=== PATIENT | female | born 2000 | race Caucasian/White ===

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

== ENCOUNTER → 2020-05-24 14:35 | Outpatient (CLI) | payer BC, SELFPAY ==
[2020-05-24 15:40] LABS: HCG Qualitative, Serum Negative (Negative)
[2020-05-24 16:26] LABS: Coronavirus 19 IgG Antibody Negative (Negative); Coronavirus 19 IgM Antibody Negative (Negative)
== END ==
PROVIDERS: Visit Provider Internal Medicine Gastroenterology
DX: Z01.812 Encounter for preprocedural laboratory examination (principal)
CPT/HCPCS: 36415; 84703; 86328

== ENCOUNTER 2020-05-26 07:55 | Day surgery (SDC) | payer BC, SELFPAY ==
[2020-05-22 15:16] VITALS: BMI 20.5
[2020-05-26] VITALS (7 sets, daily range): BP systolic 89–115; BP diastolic 44–73; PULSE 76–96; RESP 18; TEMP 36.2–36.7; O2SAT 97–100
--- NOTE | 2020-05-26 12:31 | P.PCN_ITS ---
[facility] Procedure Note Procedure Note:: Upper Endoscopy Procedure Report: Esophagogastroduodenoscopy with cold biopsies Endoscopost: Maxx Iraheta II, MD Referring Physician: Vicki LARIOS Date of Procedure: May 26, 2020 Equipment: Olympus GIF 180 standard upper endoscope Sedation: MAC sedation Indications: Ms. Blair is a 19-year-old female with moderate bloating and diarrhea. She has some indigestion and belching. She has lower abdominal discomfort. She reports some early satiety. Her recent lab work showed positive celiac serologies with a delaminated gliadin IgA 27, IgG 30 (elevated) and elevated tissue transglutaminase IgA and IgG (46 and 27 respectively) and positive anti-endomysial antibody. The patient is gluten-free. She has had symptoms for the last 2-1/2 to 3 years. She reports no heartburn, reflux or dysphagia. She reports no melena. She does note blood in the stool at times. She also has some diarrhea that alternates with obstipation/incomplete bowel evacuation. Procedure: Prior to the procedure, a history and physical exam was performed, and patient's medications and allergies were reviewed. The risks, benefits and alternatives of the sedation and procedure were discussed with the patient. All questions were answered and informed consent was obtained. The patient was brought to the procedure room. Patient identification and proposed procedure were verified by the physician and the nurse. The patient was placed in a left lateral decubitus position and the scope was passed under direct vision. Throughout the procedure, the patient's blood pressure, pulse, and oxygen saturations were monitored continuously. The upper GI endoscopy was accomplished without difficulty. The patient tolerated the procedure well. Findings: The scope was passed directly into the upper esophagus and advanced to the third portion of the duodenum. The post bulbar duodenum appeared to be relatively normal. 3 biopsies were taken from the post bulbar duodenum. There was some mucosal scalloping very minimally within the duodenal bulb and biopsies were taken additionally in the duodenal bulb to check histology (berg classification of celiac disease). The scope was withdrawn through a normal pylorus into the stomach. There was moderate bile reflux with mild linear reactive gastropathy of the antrum. The body and fundus of the stomach were normal. Cold biopsies were taken from the antrum. Upon retroflexion there was no hiatal hernia. The scope was then withdrawn into the esophagus. There was no evidence of reflux esophagitis or Ramos's. The remainder of the esophageal mucosa was normal. Impression: 1. Minimal duodenal scalloping with primarily normal appearing duodenal c onniventes?biopsies taken for celiac sprue and Berg classification 2. Bile reflux with mild linear reactive gastropathy Plan: I will follow-up the biopsies. The patient unquestionably has celiac d isease and is gluten-free. I also feel that she has functional abdominal issues/IBS which certainly may be related to reduced brush border enzymes (possible sucrase isomaltase deficiency). I would recommend C 13 sucrose breath testing. We will discuss the findings and additional treatment options.
[2020-05-26 13:35] LABS: Basophils % 0.4 % (0.1-2.0); Eosinophils # 0.1 K/mm3 (0.0-0.4); Eosinophils % 1.6 % (0.1-12.0); Hematocrit 36.1 % (37.0-47.0); Lymphocytes # 1.9 K/mm3 (0.7-4.5); Lymphocytes % 37.4 % (10-50); Mean Corpuscular Hemoglobin 33.3 pg (27.0-31.2); Mean Corpuscular Volume 92.3 fl (81-99); Mean Platelet Volume 8.5 fl (7.4-10.4); Monocytes # 0.2 K/mm3 (0.1-1.0); Neutrophils # 2.9 K/mm3 (1.8-7.8); Neutrophils % 56.5 % (37.0-80.0); Platelet Count 175 K/mm3 (142-424); Red Blood Count 3.91 M/mm3 (4.20-5.40); Red Cell Distribution Width 12.7 % (11.5-17.5); White Blood Count 5.1 K/mm3 (4.5-13.0)
[2020-05-26 13:41] LABS: Chloride 107 mmol/L (98-107); Sodium 141 mmol/L (136-145)
[2020-05-26 13:42] LABS: Potassium 3.7 mmoL/L (3.5-5.1)
[2020-05-26 13:44] LABS: Alanine Aminotransferase 20 U/L (12-78); Alkaline Phosphatase 59 U/L (38-126); Anion Gap 12.7 mEq/L (5-15); Aspartate Amino Transferase 29 U/L (14-36); Bilirubin,Total 0.6 mg/dl (0.2-1.3); Blood Urea Nitrogen 10 mg/dl (7-17); Calcium 9.6 mg/dl (8.4-10.2); Carbon Dioxide 25 mmol/L (22.0-30.0); Creatinine Clearance Estimated 118 mL/min (50-200); Estimated Glomerular Filt Rate 108 ml/min (>60); GFR (African American) 130 ML/MIN (>60); Glucose 77 mg/dl (74-100); Iron 96 ug/dL (37-170)
[2020-05-26 13:45] LABS: Albumin Level 4.3 g/dl (3.5-5.0); Albumin/Globulin Ratio 1.4 (1.1-1.8); Total Protein,Serum 7.3 g/dl (6.3-8.2)
[2020-05-26 14:18] LABS: Thyroid Stimulating Hormone 1.05 uIU/mL (0.465-4.68)
[2020-05-26 14:22] LABS: Ferritin 18.1 ng/ml (6.24-137)
[2020-05-26 15:22] LABS: Free T4 (Free Thyroxine) 1.32 ng/dl (0.78-2.19)
[2020-05-27 13:07] LABS: Folate 19.7 ng/mL (>3.0); Vitamin B12 411 pg/mL (232-1245)
[2020-05-28 07:25] LABS: Actin (Smooth Muscle) Antibody 6 Units (0-19)
[2020-06-01 11:18] LABS: 1,25 Dihydroxy Vitamin D 35 pg/mL (.); 1,25-Dihydroxy, Vitamin D-2 <10 pg/mL (.); 1,25-Dihydroxy, Vitamin D-3 35 pg/mL (.)
== END 2020-05-26 13:32 | disposition home or self-care (01) ==
PROVIDERS: PCP Family Medicine; Visit Provider Internal Medicine Gastroenterology
PROC: 0DJ08ZZ Inspection of Upper Intestinal Tract, Via Natural or Artificial Opening Endoscopic (ICD-10-PCS; CPT 43235; principal; 2020-05-26 12:00)
DX: K31.89 Other diseases of stomach and duodenum (principal); K21.9 Gastro-esophageal reflux disease without esophagitis; K31.9 Disease of stomach and duodenum, unspecified; F41.9 Anxiety disorder, unspecified; F32.9 Major depressive disorder, single episode, unspecified; Z80.9 Family history of malignant neoplasm, unspecified; Z82.49 Family history of ischemic heart disease and other diseases of the circulatory system; Z83.3 Family history of diabetes mellitus; Z96.22 Myringotomy tube(s) status; Z79.899 Other long term (current) drug therapy
CPT/HCPCS: 43239; 36415; 80053; 82607; 82652; 82728; 82746; 83540; 84439; 84443; 85025; 86255

== ENCOUNTER → 2020-07-24 15:49 | Outpatient (POV) | payer BC, SELFPAY | PROVIDERS: Visit Provider Nurse Practitioner Family | DX: Z00.00 Encounter for general adult medical examination without abnormal findings (principal) ==

== ENCOUNTER 2020-09-25 12:25 | Emergency (ER) | payer BC, SELFPAY ==
[2020-09-25 13:21] VITALS: BP 131/76; PULSE 78; RESP 19; TEMP 36.6; O2SAT 99; BMI 19.3
[2020-09-25 13:26] VITALS: BP 131/76; PULSE 78; RESP 19; TEMP 36.6; O2SAT 99
--- NOTE | 2020-09-25 13:28 | HMH.EDUTC ---
[facility] Disposition Clinical Impression: Exposure to COVID-19 virus Disposition: Home, Self-Care Condition on Discharge: Good Instructions: Preventing the Spread of Coronavirus Discharge Instructions Additional Instructions: *Monitor Temp, Over the counter Motrin or Tylenol as directed/as needed Tylenol every 4 hours and Motrin every 6 hours (as long as your family doctor has told you that you can take it) for fever or pain. and straight to ER if unable to lower temp less than 101.0 after medication given *Warm salt water gargles may help to soothe the throat *Throat Lozenges *Warm fluids like tea with honey may help to soothe the throat *Sleep elevated *Humidifier/Vaporizer Follow up IMMEDIATELY for new or worsening symptoms or no Noticeable improvement over the next 48-72 hours. 911 for difficulty breathing or swallowing You were tested for today for COVID19 your test result should be back in the next 24-48 hours, you may call to the [facility] to see if your test results are back in the next 48 hours [phone] [facility] hours are 9am-9pm You was given a handout with instructions for Self Quarantine and Self isolation for while you wait on test results and what to do if they are positive If you are positive the Health Dept will be contacting you also Referrals: Bob Garcia MD [Primary Care Provider] - As needed Forms: Work/School Release Time of Disposition: 13:29 Medical Decision Making - Christos Inquiry Pt receiving controlled substance: No Christos was queried for this patient: No Vital Signs: 09/25/20 13:21 09/25/20 13:26 Temperature 97.8 F 97.8 F Temperature Source Oral Pulse Rate 78 Pulse Rate [Left] 78 Respiratory Rate 19 19 Blood Pressure 131/76 Blood Pressure [Right Arm] 131/76 Blood Pressure Mean [Right Arm] 94 Blood Pressure Source [Right Arm] Automatic Cuff Blood Pressure Position [Right Arm] Sitting 02 Sat by Pulse Oximetry 99 Oxygen Delivery Method Room Air Orders (Tests/Meds): ORDERS Category Date Time Status Covid-19 Nasal PCR Sendout [facility] 09/25/20 13:11 Ordered [facility] HPI - General Stated complaint: covid exposure,symtoms Time Seen by Provider: 09/25/20 13:28 Mode of Arrival: Ambulatory Source of Information: Patient Limitations: No Limitations Description of Symptoms (Recalled from Triage Doc. by RN): Covid testing- symptomatic- headache, fatigue, cough HEENT Symptoms (Recalled from RN notes): No Resp Symptoms (Recalled from RN notes): No Skin Symptoms (Recalled from RN notes): No MS Symptoms (Recalled from RN notes): Yes Functional Status (Recalled from RN notes): wnl - History of Present Illness Provider Complaint: Patient states that she was recently around her boyfriends grandparents that has since tested positive for COVID States that she has been having clear drianage from her nose and headache on and off for 3 days and wanted to get tested for COVID after today she woke up having headache and body aches - Related Data Home Medications Medication Instructions Recorded Confirmed Duloxetine HCl [Cymbalta] 30 mg PO DAILY 05/22/20 09/21/20 Loratadine [Claritin] 10 mg PO DAILY 05/22/20 09/21/20 Medroxyprogesterone Acetate 150 mg IM [id number] 05/22/20 09/21/20 Melatonin 10 mg PO HS 05/26/20 09/21/20 sacrosidase 8,500 unit/mL oral PO 07/04/20 09/21/20 solution Allergies Allergy/AdvReac Type Severity Reaction Status Date / Time No Known Allergies Allergy Verified 09/21/20 10:32 - Worker's Comp Is this a Worker's Comp case?: No Is this an [facility] Worker's Comp?: No Is this a [facility] Worker's Comp?: No H History - Hepatitis A Screen Drug use history?: No High risk sexual behaviors?: No History of sexually transmitted infection?: No Currently employed?: No Childcare worker?: No Do you have indoor plumbing?: Yes Do you have electricity?: Yes Attestation statement:: This patient has been screened for Hepatitis A risk factors. I
[2020-09-27 13:16] LABS: Covid-19 Nasal PCR Sendout Lex Not Detected
== END 2020-09-25 14:05 | disposition home or self-care (01) ==
PROVIDERS: Emergency Provider Nurse Practitioner; PCP Family Medicine
DX: Z20.828 Contact with and (suspected) exposure to other viral communicable diseases (principal); R51.9 Headache, unspecified; R05 Cough; R53.83 Other fatigue
CPT/HCPCS: 99201; U0004

== ENCOUNTER → 2020-10-23 13:27 | Outpatient (CLI) | payer BC, SELFPAY ==
[2020-10-23 14:03] LABS: Alanine Aminotransferase 25 U/L (12-78); Albumin Level 4.8 g/dl (3.5-5.0); Albumin/Globulin Ratio 1.3 (1.1-1.8); Alkaline Phosphatase 56 U/L (38-126); Anion Gap 15.9 mEq/L (5-15); Aspartate Amino Transferase 31 U/L (14-36); Bilirubin,Total 0.6 mg/dl (0.2-1.3); Blood Urea Nitrogen 8 mg/dl (7-17); Calcium 10.1 mg/dl (8.4-10.2); Carbon Dioxide 21 mmol/L (22.0-30.0); Chloride 106 mmol/L (98-107); Estimated Glomerular Filt Rate 107 ml/min (>60); GFR (African American) 129 ML/MIN (>60); Globulin 3.7 g/dL (1.3-3.2); Glucose 110 mg/dl (74-100); Iron 151 ug/dL (37-170); Potassium 3.9 mmoL/L (3.5-5.1); Sodium 139 mmol/L (136-145); Total Protein,Serum 8.5 g/dl (6.3-8.2)
[2020-10-23 14:19] LABS: Basophils # 0.1 K/mm3 (0-0.2); Eosinophils # 0.1 K/mm3 (0.0-0.4); Eosinophils % 2.6 % (0.1-12.0); Hematocrit 42.2 % (37.0-47.0); Hemoglobin 14.5 g/dL (12.2-16.2); Lymphocytes # 2.1 K/mm3 (0.7-4.5); Lymphocytes % 44.9 % (10-50); Mean Corpuscular HGB Conc 34.3 g/dL (31.8-35.4); Mean Corpuscular Hemoglobin 31.2 pg (27.0-31.2); Mean Corpuscular Volume 91.1 fl (81-99); Mean Platelet Volume 8.4 fl (7.4-10.4); Monocytes # 0.3 K/mm3 (0.1-1.0); Monocytes % 5.5 % (1.7-9.3); Neutrophils # 2.2 K/mm3 (1.8-7.8); Platelet Count 221 K/mm3 (142-424); Red Blood Count 4.63 M/mm3 (4.20-5.40); Red Cell Distribution Width 13.5 % (11.5-17.5); White Blood Count 4.7 K/mm3 (4.5-13.0)
[2020-10-23 14:39] LABS: Ferritin 25.4 ng/ml (6.24-137)
[2020-10-23 14:53] LABS: Vitamin B12 359 pg/mL (239-931)
[2020-10-23 15:06] LABS: 25-OH Vitamin D, Total 44.9 ng/mL (30-100)
[2020-10-23 15:25] LABS: Total Iron Binding Capacity 358 ug/dL (265-497)
[2020-10-25 16:16] LABS: Tissue Transglutaminase IgA Ab 12 U/mL (0-3)
== END ==
PROVIDERS: Visit Provider Nurse Practitioner Family
DX: K59.00 Constipation, unspecified (principal); E74.31 Sucrase-isomaltase deficiency
CPT/HCPCS: 36415; 80053; 82306; 82607; 82728; 83516; 83540; 83550; 85025

== ENCOUNTER → 2020-10-23 14:07 | Outpatient (POV) | payer BC, SELFPAY | PROVIDERS: Visit Provider Nurse Practitioner Family | DX: Z00.00 Encounter for general adult medical examination without abnormal findings (principal) ==

== ENCOUNTER → 2021-09-22 10:48 | Outpatient (CLI) | payer BC, SELFPAY ==
[2021-09-22 12:06] LABS: Adenovirus,PCR Not Detected (NotDetected); Bordetella Pertussis Not Detected (NotDetected); Chlamydophila Pneumoniae, PCR Not Detected (NotDetected); Coronavirus 19, PCR Not Detected (NotDetected); Coronavirus 229E Not Detected (NotDetected); Coronavirus NL63 Not Detected (NotDetected); Coronavirus OC43 Not Detected (NotDetected); Coronovirus HKU1,PCR Not Detected (NotDetected); Human Metapneumovirus Not Detected (NotDetected); Influenza A, PCR Not Detected (NotDetected); Influenza AH1, 2009 Not Detected (NotDetected); Influenza AH1, PCR Not Detected (NotDetected); Influenza AH3,PCR Not Detected (NotDetected); Influenza B, PCR Not Detected (NotDetected); Mycoplasma Pneumoniae, PCR Not Detected (NotDetected); Parainfluenza 1, PCR Not Detected (NotDetected); Parainfluenza 2, PCR Not Detected (NotDetected); Parainfluenza 3, PCR Not Detected (NotDetected); Parainfluenza 4, PCR Not Detected (NotDetected); Respiratory Syncytial Virus Not Detected (NotDetected); Rhinovirus/Enterovirus Not Detected (NotDetected)
[2021-09-22 12:24] LABS: Basophils % 0.3 % (0.1-2.0); Eosinophils # 0.1 K/mm3 (0.0-0.4); Eosinophils % 1.5 % (0.1-12.0); Hematocrit 40.6 % (37.0-47.0); Hemoglobin 13.8 g/dL (12.2-16.2); Lymphocytes # 1.7 K/mm3 (0.7-4.5); Lymphocytes % 27.7 % (10-50); Mean Corpuscular HGB Conc 33.9 g/dL (31.8-35.4); Mean Corpuscular Volume 94.4 fl (81-99); Mean Platelet Volume 8.4 fl (7.4-10.4); Monocytes # 0.4 K/mm3 (0.1-1.0); Neutrophils % 64.4 % (37.0-80.0); Platelet Count 181 K/mm3 (142-424); Red Cell Distribution Width 12.5 % (11.5-17.5); White Blood Count 6.2 K/mm3 (4.8-10.8)
== END ==
PROVIDERS: PCP Family Medicine; Visit Provider Family Medicine
DX: Z20.822 Contact with and (suspected) exposure to COVID-19 (principal)
CPT/HCPCS: 36415; 85025; 87581; 87632; 87798; C9803; U0003; U0005

== ENCOUNTER → 2021-10-11 09:47 | Outpatient (CLI) | payer BC, SELFPAY ==
[2021-10-11 10:38] LABS: Coronavirus 19, PCR Not Detected (NotDetected); Influenza A, PCR Not Detected (NotDetected); Influenza B, PCR Not Detected (NotDetected)
== END ==
PROVIDERS: Visit Provider Nurse Practitioner
DX: Z20.822 Contact with and (suspected) exposure to COVID-19 (principal)
CPT/HCPCS: C9803; U0003; U0005

== ENCOUNTER → 2021-12-17 09:33 | Outpatient (CLI) | payer BC, SELFPAY ==
[2021-12-17 10:37] LABS: Basophils % 0.9 % (0.1-2.0); Eosinophils # 0.1 K/mm3 (0.0-0.4); Eosinophils % 2.4 % (0.1-12.0); Hematocrit 38.2 % (37.0-47.0); Lymphocytes # 1.6 K/mm3 (0.7-4.5); Lymphocytes % 40.7 % (10-50); Mean Corpuscular HGB Conc 33.9 g/dL (31.8-35.4); Mean Corpuscular Hemoglobin 31.4 pg (27.0-31.2); Mean Corpuscular Volume 92.6 fl (81-99); Mean Platelet Volume 8.4 fl (7.4-10.4); Monocytes # 0.2 K/mm3 (0.1-1.0); Monocytes % 5.8 % (1.7-9.3); Neutrophils % 50.1 % (37.0-80.0); Platelet Count 183 K/mm3 (142-424); Red Blood Count 4.13 M/mm3 (4.20-5.40); Red Cell Distribution Width 13.1 % (11.5-17.5)
[2021-12-17 11:02] LABS: Chloride 105 mmol/L (98-107); Potassium 3.8 mmoL/L (3.5-5.1); Sodium 137 mmol/L (136-145)
[2021-12-17 11:04] LABS: Alanine Aminotransferase 22 U/L (12-78); Alkaline Phosphatase 52 U/L (38-126); Aspartate Amino Transferase 27 U/L (14-36); Bilirubin,Total 0.6 mg/dl (0.2-1.3); Blood Urea Nitrogen 8 mg/dl (7-17); Estimated Glomerular Filt Rate 106 ml/min (>60); GFR (African American) 128 ML/MIN (>60)
[2021-12-17 11:05] LABS: Albumin Level 4.7 g/dl (3.5-5.0); Albumin/Globulin Ratio 1.8 (1.1-1.8); Anion Gap 11.8 mEq/L (5-15); Calcium 8.8 mg/dl (8.4-10.2); Carbon Dioxide 24 mmol/L (22.0-30.0); Globulin 2.6 g/dL (1.3-3.2); Glucose 77 mg/dl (74-100); Iron 107 ug/dL (37-170); Total Protein,Serum 7.3 g/dl (6.3-8.2)
[2021-12-17 11:08] LABS: Erythrocyte Sedimentation Rate 17 mm/hr (0-20)
[2021-12-17 11:11] LABS: C-Reactive Protein 0.3 mg/L (0-4)
[2021-12-17 11:14] LABS: Total Iron Binding Capacity 334 ug/dL (265-497)
[2021-12-17 11:26] LABS: 25-OH Vitamin D, Total 54.5 ng/mL (30-100)
[2021-12-17 11:40] LABS: Ferritin 36.6 ng/ml (6.24-137)
[2021-12-17 14:26] LABS: Vitamin B12 335 pg/mL (239-931)
[2021-12-18 15:14] LABS: Tissue Transglutaminase IgA Ab 6 U/mL (0-3)
== END ==
PROVIDERS: Visit Provider Nurse Practitioner Family
DX: K90.0 Celiac disease (principal); E74.31 Sucrase-isomaltase deficiency
CPT/HCPCS: 36415; 80053; 82306; 82607; 82728; 83516; 83540; 83550; 85025; 85651; 86140

== ENCOUNTER → 2022-12-17 15:30 | Outpatient (CLI) | payer BC, SELFPAY ==
[2022-12-17 16:46] LABS: Basophils # 0.1 K/mm3 (0-0.2); Basophils % 1.1 % (0.1-2.0); Eosinophils # 0.1 K/mm3 (0.0-0.4); Eosinophils % 1.3 % (0.1-12.0); Hematocrit 39.2 % (37.0-47.0); Hemoglobin 12.8 g/dL (12.2-16.2); Lymphocytes # 2.4 K/mm3 (0.7-4.5); Lymphocytes % 35.4 % (10-50); Mean Corpuscular HGB Conc 32.7 g/dL (31.8-35.4); Mean Corpuscular Hemoglobin 31.1 pg (27.0-31.2); Mean Corpuscular Volume 95.1 fl (81-99); Mean Platelet Volume 8.8 fl (7.4-10.4); Monocytes # 0.3 K/mm3 (0.1-1.0); Neutrophils # 3.9 K/mm3 (1.8-7.8); Neutrophils % 58.1 % (37.0-80.0); Platelet Count 278 K/mm3 (142-424); Red Blood Count 4.12 M/mm3 (4.20-5.40); Red Cell Distribution Width 13.5 % (11.5-17.5); White Blood Count 6.7 K/mm3 (4.8-10.8)
[2022-12-17 16:58] LABS: Alanine Aminotransferase 22 U/L (12-78); Albumin Level 4.5 g/dl (3.5-5.0); Albumin/Globulin Ratio 1.6 (1.1-1.8); Alkaline Phosphatase 49 U/L (38-126); Anion Gap 6.3 mEq/L (5-15); Aspartate Amino Transferase 27 U/L (14-36); Bilirubin,Total 0.4 mg/dl (0.2-1.3); Blood Urea Nitrogen 11 mg/dl (7-17); Calcium 9.6 mg/dl (8.4-10.2); Carbon Dioxide 27 mmol/L (22.0-30.0); Chloride 108 mmol/L (98-107); Estimated Glomerular Filt Rate 105 ml/min (>60); GFR (African American) 127 ML/MIN (>60); Globulin 2.9 g/dL (1.3-3.2); Glucose 92 mg/dl (74-100); Iron 126 ug/dL (37-170); Potassium 4.3 mmoL/L (3.5-5.1); Sodium 137 mmol/L (136-145); Total Protein,Serum 7.4 g/dl (6.3-8.2)
[2022-12-17 17:08] LABS: Total Iron Binding Capacity 458 ug/dL (265-497)
[2022-12-17 17:17] LABS: 25-OH Vitamin D, Total 54.3 ng/mL (30-100)
[2022-12-17 17:35] LABS: Ferritin 14.8 ng/ml (6.24-137)
[2022-12-17 17:48] LABS: Vitamin B12 342 pg/mL (239-931)
[2022-12-19 16:13] LABS: Tissue Transglutaminase IgA Ab 4 U/mL (0-3)
== END ==
PROVIDERS: PCP Family Medicine; Visit Provider Nurse Practitioner Family
DX: K90.0 Celiac disease (principal); E74.31 Sucrase-isomaltase deficiency
CPT/HCPCS: 36415; 80053; 82306; 82607; 82728; 83516; 83540; 83550; 85025

== ENCOUNTER → 2023-09-29 15:22 | Outpatient (CLI) | payer BC, SELFPAY ==
--- NOTE | 2023-09-29 15:27 | XR_ITS ---
FINAL REPORT CLINICAL HISTORY: PERIUMBILICAL ABD PAIN FINDINGS: Flat and upright views of the abdomen were obtained. No prior exam is available for comparison. There is a nonspecific, nonobstructive bowel gas pattern. High density in the colon could be due to ingested material. There is a moderate amount of stool throughout the colon consistent with constipation. No abnormal calcifications are identified. IMPRESSION: Constipation without evidence of obstruction. Reviewed, Interpreted and Dictated by Rafael Soto MD Transcribed by Itzel Hampton Authenticated and [facility]
== END ==
PROVIDERS: PCP Family Medicine; Visit Provider Family Medicine
DX: R10.33 Periumbilical pain (principal)
CPT/HCPCS: 74019

== ENCOUNTER 2023-12-25 13:15 | Outpatient (CLI) | payer BC, SELFPAY ==
[2023-12-25 13:33] LABS: Basophils # 0.1 K/mm3 (0-0.2); Basophils % 1.6 % (0.1-2.0); Eosinophils # 0.2 K/mm3 (0.0-0.4); Eosinophils % 4.3 % (0.1-12.0); Hematocrit 39.8 % (37.0-47.0); Hemoglobin 12.5 g/dL (12.2-16.2); Lymphocytes # 1.8 K/mm3 (0.7-4.5); Lymphocytes % 37.5 % (10-50); Mean Corpuscular HGB Conc 31.5 g/dL (31.8-35.4); Mean Corpuscular Hemoglobin 31.3 pg (27.0-31.2); Mean Corpuscular Volume 99.5 fl (81-99); Mean Platelet Volume 9.4 fl (7.4-10.4); Monocytes # 0.3 K/mm3 (0.1-1.0); Monocytes % 5.9 % (1.7-9.3); Neutrophils # 2.4 K/mm3 (1.8-7.8); Neutrophils % 50.7 % (37.0-80.0); Platelet Count 191 K/mm3 (142-424); Red Cell Distribution Width 13.9 % (11.5-17.5); White Blood Count 4.7 K/mm3 (4.8-10.8)
[2023-12-25 14:44] LABS: Alanine Aminotransferase 28 U/L (12-78); Albumin Level 4.3 g/dl (3.5-5.0); Albumin/Globulin Ratio 1.5 (1.1-1.8); Alkaline Phosphatase 54 U/L (38-126); Anion Gap 11.9 mEq/L (5-15); Aspartate Amino Transferase 33 U/L (14-36); Bilirubin,Total 0.4 mg/dl (0.2-1.3); Blood Urea Nitrogen 6 mg/dl (7-17); Calcium 9.1 mg/dl (8.4-10.2); Carbon Dioxide 25 mmol/L (22.0-30.0); Chloride 107 mmol/L (98-107); Estimated Glomerular Filt Rate 104 ml/min (>60); GFR (African American) 125 ML/MIN (>60); Globulin 2.8 g/dL (1.3-3.2); Glucose 87 mg/dl (74-100); Potassium 3.9 mmoL/L (3.5-5.1); Sodium 140 mmol/L (136-145); Total Protein,Serum 7.1 g/dl (6.3-8.2)
[2023-12-25 15:01] LABS: 25-OH Vitamin D, Total 63.2 ng/mL (30-100)
[2023-12-25 15:35] LABS: Vitamin B12 409 pg/mL (239-931)
[2023-12-25 15:50] LABS: Iron 78 ug/dL (37-170)
[2023-12-25 15:59] LABS: Total Iron Binding Capacity 460 ug/dL (265-497)
[2023-12-25 16:26] LABS: Ferritin 6.56 ng/ml (6.24-137)
[2023-12-26 16:19] LABS: Tissue Transglutaminase IgA Ab 5 U/mL (0-3)
== END 2023-12-25 23:59 ==
LOC: LAB 13:16
PROVIDERS: PCP Family Medicine; Visit Provider Nurse Practitioner Family
DX: K90.0 Celiac disease (principal); E74.31 Sucrase-isomaltase deficiency
CPT/HCPCS: 36415; 80053; 82306; 82607; 82728; 83516; 83540; 83550; 85025

== ENCOUNTER 2024-10-28 13:57 | Outpatient (CLI) | payer BC, SELFPAY ==
[2024-10-28 14:16] LABS: Basophils % 0.6 % (0.1-2.0); Eosinophils # 0.2 K/mm3 (0.0-0.4); Eosinophils % 3.8 % (0.1-12.0); Hematocrit 41.4 % (37.0-47.0); Hemoglobin 13.9 g/dL (12.2-16.2); Lymphocytes # 2.1 K/mm3 (0.7-4.5); Lymphocytes % 32.2 % (10-50); Mean Corpuscular HGB Conc 33.6 g/dL (31.8-35.4); Mean Corpuscular Hemoglobin 31.2 pg (27.0-31.2); Mean Corpuscular Volume 92.8 fl (81-99); Mean Platelet Volume 10.8 fl (7.4-10.4); Monocytes # 0.5 K/mm3 (0.1-1.0); Neutrophils # 3.6 K/mm3 (1.8-7.8); Neutrophils % 56.1 % (37.0-80.0); Platelet Count 185 K/mm3 (142-424); Red Blood Count 4.46 M/mm3 (4.20-5.40); Red Cell Distribution Width 12.7 % (11.5-17.5); White Blood Count 6.4 K/mm3 (4.8-10.8)
[2024-10-28 14:36] LABS: Albumin Level 4.9 g/dl (3.5-5.0); Chloride 102 mmol/L (98-107); Sodium 140 mmol/L (136-145)
[2024-10-28 14:37] LABS: Potassium 3.7 mmoL/L (3.5-5.1)
[2024-10-28 14:39] LABS: Alanine Aminotransferase 27 U/L (12-78); Albumin/Globulin Ratio 1.8 (1.1-1.8); Alkaline Phosphatase 60 U/L (38-126); Anion Gap 13.7 mEq/L (5-15); Aspartate Amino Transferase 34 U/L (14-36); Bilirubin,Total 0.4 mg/dl (0.2-1.3); Blood Urea Nitrogen 10 mg/dl (7-17); Carbon Dioxide 28 mmol/L (22.0-30.0); Estimated Glomerular Filt Rate 103 ml/min (>60); GFR (African American) 124 ML/MIN (>60); Globulin 2.8 g/dL (1.3-3.2); Iron 100 ug/dL (37-170); Total Protein,Serum 7.7 g/dl (6.3-8.2)
[2024-10-28 14:40] LABS: Calcium 9.9 mg/dl (8.4-10.2); Glucose 81 mg/dl (74-100)
[2024-10-28 14:50] LABS: Total Iron Binding Capacity 386 ug/dL (265-497)
[2024-10-28 15:17] LABS: Ferritin 17.7 ng/ml (6.24-137)
[2024-10-28 16:15] LABS: 25-OH Vitamin D, Total 57.2 ng/mL (30-100)
[2024-10-28 16:18] LABS: Vitamin B12 587 pg/mL (239-931)
[2024-10-29 16:45] LABS: Tissue Transglutaminase IgA Ab 4 U/mL (0-3); Tissue Transglutaminase IgG Ab 6 U/mL (0-5)
== END 2024-10-28 23:59 | disposition home or self-care (01) ==
LOC: LAB 13:58
PROVIDERS: PCP Family Medicine; Visit Provider Nurse Practitioner Family
DX: K90.0 Celiac disease (principal)
CPT/HCPCS: 36415; 80053; 82306; 82607; 82728; 83516; 83540; 83550; 85025